=== PATIENT | female | born 1975 | race Caucasian/White ===

== ENCOUNTER 2016-07-01 19:39 | Emergency (ER) | payer SELFPAY ==
[~2016-07-01 19:39] MED LIST: ASPIRIN PO
== END 2016-07-01 20:18 | disposition home or self-care (01) ==
LOC: SED 19:39
DX: S01.81XA Laceration without foreign body of other part of head, initial encounter (principal); Z23 Encounter for immunization; F17.210 Nicotine dependence, cigarettes, uncomplicated; W10.9XXA Fall (on) (from) unspecified stairs and steps, initial encounter; Y92.009 Unspecified place in unspecified non-institutional (private) residence as the place of occurrence of the external cause
CPT/HCPCS: 90471; 90715; 99283

== ENCOUNTER 2016-10-10 14:29 | Emergency (ER) | payer SELFPAY | END 2016-10-10 14:58 | disposition home or self-care (01) | LOC: SED 14:29 | DX: R21 Rash and other nonspecific skin eruption (principal); F17.200 Nicotine dependence, unspecified, uncomplicated | CPT/HCPCS: 99282 ==